=== PATIENT | female | born 1960 | race Caucasian/White ===

== ENCOUNTER 2016-06-09 04:07 | Emergency (ER) | payer BC, OTHER ==
[~2016-06-09] VITALS: Ht 165.1 cm; Wt 67.2 kg
[~2016-06-09 04:07] MED LIST: CIPR500T2 PO; LORA-474 PO; LORT5TAB PO; PRED20 PO
[2016-06-09 04:13] VITALS: BP 158/96; PULSE 89; RESP 16; TEMP 97.8; O2SAT 99
[2016-06-09] MEDS ORDERED: EXCETAB2 PO (04:24)
[2016-06-09] MEDS ORDERED: LORA-392 PO (04:24)
[2016-06-09 04:45] VITALS: BP 160/97; PULSE 81; RESP 16; O2SAT 99
[2016-06-09] MEDS ORDERED: KETOROLAC TROMETHAMINE 30 MG/ML (IVP) VIAL IVP ONE (05:00)
[2016-06-09] MEDS ORDERED: SODIUM CHLOR 0.9% 1000 ML INJ 1,000 ML IV SCH (05:00)
[2016-06-09] MEDS ORDERED: SODIUM CHLORIDE 0.9% FLUSH 10 ML FLUSH IVF PRN (05:00)
[2016-06-09] MEDS ORDERED: ONDANSETRON HCL 4 MG/2 ML VIAL IVP ONE (05:00)
--- NOTE | 2016-06-09 05:07 | PD ---
HPI Chief Complaint: Complaint Time Seen by Provider: 04:51 Travel History International Travel<30 days: No Contact w/Intl Traveler<30days: No Traveled to known affect area: No History of Present Illness HPI 55-year-old female presents to the emergency department by private transportation for evaluation of 2 days for hematuria. Patient reports previous history of kidney stents. Patient states pain is intermittent and colicky in nature but did not start flank pain. No dysuria frequency or urgency. No fever or chills. Patient's had nausea without vomiting. Patient is also had loose stool. Patient denies any other concerns or complaints. Patient rates her discomfort 9/10 intensity over the right hip area. Patient states she is post menopausal. Patient reports that she has not had any vaginal bleeding. Patient denies other concerns or complaints. Patient is unable to identify exacerbating or alleviating factors. PFSH Past Medical History Narrative Medical Kidney stones anxiety hypertension hernia disc D&C appendectomy tonsillectomy tobacco use nursing notes reviewed Anxiety: Yes Cancer: No Diabetes: No Diminished Hearing: No Glaucoma: No Hepatitis: No Hiatal Hernia: No Hypertension: Yes Inguinal Hernia: No Kidney Stones: Yes Musculoskeletal: Yes (NECK PAIN-HERNIATED DISC) Thyroid Disease: No Tetanus Vaccination: Unknown Influenza Vaccination: No ?: Not LMP: POST MENAPAUSAL : 2 Para: 1 Miscarriage: 1 Dilation and Curettage (D&C): Yes Past Surgical History Abdominal Surgery: Yes (d and c appendectomy) Appendectomy: Yes Section: Yes Genitourinary Surgery: Yes (KIDNEY STONE REMOVED) Oral Surgery: Yes (tonsillectomy) Pacemaker: No Tonsillectomy: Yes Social History Alcohol Use: Yes ("WINE NIGHTLY") Tobacco Use: Yes (1PPD) Substance Use: No Allergies-Medications (Allergen,Severity, Reaction): Coded Allergies: No Known Allergies (Verified , 06/09/16) Reported Meds & Prescriptions Reported Meds & Active Scripts Active Reported Ativan (Lorazepam) 0.5 Mg Tab 0.5 Mg PO HS PRN Excedrin Extra Strength (Typqcep-Eqwwliifjipeh-Ajcjryfc) 250-250-65 Mg Tab 1 Tab PO DAILY PRN Review of Systems Except as stated in HPI: all other systems reviewed are Neg General / Constitutional: No: Fever, Chills HENT: No: Congestion Cardiovascular: No: Chest Pain or Discomfort Respiratory: No: Shortness of Breath Gastrointestinal: Positive: Abdominal Pain, No: Nausea, Vomiting Genitourinary: Positive: Hematuria, Flank Pain Musculoskeletal: No: Myalgias, Arthralgias Skin: No Rash Neurologic: No: Weakness Psychiatric: No: Anxiety Endocrine: No: Polyuria Hematologic/Lymphatic: No: Lymph Node Enlargement Physical Exam Narrative GENERAL: Well-developed well-nourished female in no acute distress no respiratory distress SKIN: Warm and dry. HEAD: Normocephalic. EYES: No scleral icterus. No injection or drainage. NECK: Supple, trachea midline. No JVD or lymphadenopathy. CARDIOVASCULAR: Regular rate and rhythm without murmurs, gallops, or rubs. RESPIRATORY: Breath sounds equal bilaterally. No accessory muscle use. GASTROINTESTINAL: Abdomen soft, non-tender, nondistended. Pelvic exam: Normal external exam no redness no induration no lesions; speculum exam no blood or tissue in the vaginal vault; bimanual exam no adnexal mass or tenderness no uterine enlargement. Rectal exam normal sphincter tone brown stool no gross blood MUSCULOSKELETAL: No cyanosis, or edema. BACK: Nontender without obvious deformity. No CVA tenderness. Data Data Last Documented VS Vital Signs Date Time Temp Pulse Resp B/P Pulse Ox O2 Delivery O2 Flow Rate FiO2 06/09/16 04:45 81 16 160/97 99 Room Air 06/09/16 04:13 97.8 Orders Complete Blood Count With Diff (06/09/16 04:51) Basic Metabolic Panel (Bmp) (06/09/16 04:51) Urinalysis - C+S If Indicated (06/09/16 04:51) Ct Abd/Pel W/O Iv Contrast (06/09/16 04:51) Ecg Monitoring (06/09/16 04:51) Iv Access Insert/Monitor (06/09/16 04:51) Ketorolac Inj (Toradol Inj) (06/09/16 05:00) Ondansetron Inj (Zofran Inj) (06/09/16 05:00) Sodium Chloride 0.9% Flush (Ns Flush) (06/09/16 05:00) Sodium Chlor 0.9% 1000 Ml Inj (Ns 1000 M (06/09/16 05:00) Labs Laboratory Tests Test 06/09/16 06/09/16 04:50 05:00 White Blood Count 7.9 TH/MM3 Red Blood Count 4.60 MIL/MM3 Hemoglobin 14.6 GM/DL Hematocrit 43.4 % Mean Corpuscular Volume 94.3 FL Mean Corpuscular Hemoglobin 31.7 PG Mean Corpuscular Hemoglobin 33.7 % Concent Red Cell Distribution Width 12.7 % Platelet Count 296 TH/MM3 Mean Platelet Volume 7.6 FL Neutrophils (%) (Auto) 58.9 % Lymphocytes (%) (Auto) 28.3 % Monocytes (%) (Auto) 10.0 % Eosinophils (%) (Auto) 2.3 % Basophils (%) (Auto) 0.5 % Neutrophils # (Auto) 4.7 TH/MM3 Lymphocytes # (Auto) 2.2 TH/MM3 Monocytes # (Auto) 0.8 TH/MM3 Eosinophils # (Auto) 0.2 TH/MM3 Basophils # (Auto) 0.0 TH/MM3 CBC Comment DIFF FINAL Differential Comment Sodium Level 142 MEQ/L Potassium Level 3.6 MEQ/L Chloride Level 107 MEQ/L Carbon Dioxide Level 26.3 MEQ/L Anion Gap 9 MEQ/L Blood Urea Nitrogen 15 MG/DL Creatinine 0.55 MG/DL Estimat Glomerular Filtration 116 ML/MIN Rate Random Glucose 125 MG/DL Calcium Level 8.7 MG/DL Urine Collection Type CATH Urine Color RED Urine Turbidity CLOUDY Urine pH 5.5 Urine Specific [place] 1.015 Urine Protein 100 mg/dL Urine Glucose (UA) NEG mg/dL Urine Ketones TRACE mg/dL Urine Occult Blood LARGE Urine Nitrite NEG Urine Bilirubin NEG Urine Leukocyte Esterase TRACE Urine RBC INNUM /hpf Urine WBC 3-5 /hpf Urine Squamous Epithelial 0-2 /hpf Cells Urine Bacteria NONE /hpf Microscopic Urinalysis Comment CATH-CULT NOT IND MDM Medical Decision Making Medical Screen Exam Complete: Yes Emergency Medical Condition: Yes Medical Record Reviewed: Yes Interpretation(s) Urinalysis: large blood CBC with differential: Within normal limits Metabolic panel: Values in normal range CBC & BMP Diagram 06/09/16 04:50 Vital Signs Date Time Temp Pulse Resp B/P Pulse Ox O2 Delivery O2 Flow Rate FiO2 06/09/16 04:31 16 06/09/16 04:30 88 16 06/09/16 04:13 97.8 89 16 158/[address] abd/pel: CONCLUSION: 1. 3 mm stone at the right UVJ with mild dilatation of the right collecting system and ureter. 2. Hepatic steatosis. 3. Cystic areas in the left pelvis. The larger cystic area appears more closely associated with the uterus or fallopian tube and could represent an old area of hydrosalpinx or a low-density pedunculated leiomyoma. The 1.5 cm cystic area in the more posterior aspect of the left pelvis is likely related to an ovarian cyst. These findings could be followed up with an ultrasound examination as an outpatient at some point. Librado Jarrett MD on June 09, 2016 at 6:01 Board Certified Radiologist. This report was verified electronically. Differential Diagnosis Hematuria, nephrolithiasis, UTI, metastatic lesion, vaginal bleeding Narrative Course IV access obtained specimens collected and sent for resulting CT imaging study resulted as consistent with 3 mm ureteral stone along with ovarian cysts; patient informed of imaging results and encouraged to follow-up with her [employer] as well as urologist and as needed primary care provider. Patient is stable for outpatient management. Patient provided a prescription for Percocet and Zofran to use as needed and encouraged to strain urine. Patient encouraged to increase fluid hydration. [facility] Point of Care Internal Pos. & Neg. 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
[2016-06-09 05:19] LABS: BLOOD, URINE LARGE (NEG); GLUCOSE,URINE NEG (NEG); KETONE, URINE TRACE mg/dL (NEG); NITRITE,URINE NEG (NEG); PH, URINE 5.5 (5.0-8.5)
[2016-06-09 05:21] LABS: AUTOMATED NEUTROPHIL # 4.7 TH/MM3 (1.8-7.7); BASOPHIL % 0.5 % (0.0-2.0); EOSINOPHIL # 0.2 TH/MM3 (0-0.4); EOSINOPHIL % 2.3 % (0.0-4.0); HEMATOCRIT 43.4 % (35.0-46.0); HEMO FLAGS DIFF FINAL; LYMPH % 28.3 % (9.0-44.0); LYMPHOCYTE # 2.2 TH/MM3 (1.0-4.8); MEAN CELL VOLUME 94.3 FL (80.0-100.0); MEAN CORPUSCULAR HEMOGLOBIN 31.7 PG (27.0-34.0); MEAN CORPUSCULAR HGB CONC 33.7 % (32.0-36.0); NEUT % 58.9 % (16.0-70.0); PLATELET COUNT 296 TH/MM3 (150-450); RED CELL DISTRIBUTION WIDTH 12.7 % (11.6-17.2); WHITE BLOOD COUNT 7.9 TH/MM3 (4.0-11.0)
[2016-06-09 05:21] LABS: METHOD OF COLLECTION CATH; URINE COLOR RED (YELLW/STRAW)
[2016-06-09 05:23] LABS: COMMENT (UR) CATH-CULT NOT IND; CULTURE IF INDICATED CATH CULTURE NOT IND; RBC, URINE INNUM /hpf (0-3); SQUAMOUS EPITHELIAL CELL URINE 0-2 /hpf (0-5)
[2016-06-09 05:26] LABS: POTASSIUM 3.6 MEQ/L (3.5-5.1)
[2016-06-09 05:28] LABS: BICARBONATE 26.3 MEQ/L (21.0-32.0)
[2016-06-09 05:50] VITALS: BP 149/81; PULSE 88; RESP 16; O2SAT 99
--- NOTE | 2016-06-09 06:08 | RADHPO ---
EXAM DATE/TIME: 06/09/2016 05:30 [facility] COMPARISON: No previous studies available for comparison. INDICATIONS : Right lower back and mid abdomen pain with hematuria. ORAL CONTRAST: No oral contrast ingested. RADIATION DOSE: 12.02 CTDIvol (mGy) MEDICAL HISTORY : Hypertension. Renal calculi. SURGICAL HISTORY : Appendectomy. section. ENCOUNTER: Initial ACUITY: 2 days PAIN SCALE: 8/10 LOCATION: Right lower quadrant back TECHNIQUE: Volumetric scanning of the abdomen and pelvis was performed. Using automated exposure control and ad justment of the mA and/or kV according to patient size, radiation dose was kept as low as reasonably achievable to obtain optimal diagnostic quality images. FINDINGS: LOWER LUNGS: The visualized lower lungs are clear. LIVER: There is diffuse decreased attenuation consistent with fatty infiltration. No focal hepatic mass is s een. There is no dilation of the biliary tree. No calcified gallstones. SPLEEN: Normal size without lesion. PANCREAS: Within normal limits. KIDNEYS: There is a 3 mm stone at the distal right UVJ. There is mild dilatation of the right collecting syste m and right ureter. The left kidney is normal. ADRENAL GLANDS: Within normal limits. VASCULAR: There is no aortic aneurysm. BOWEL/MESENTERY: The stomach, small bowel, and colon demonstrate no acute abnormality. There is no free intraperitone al air or fluid. ABDOMINAL WALL: Within normal limits. RETROPERITONEUM: There is no lymphadenopathy. BLADDER: No wall thickening or mass. REPRODUCTIVE: There is a 3.4 cm low-density mass seen in the anterior left pelvis adjacent to the uterine fundus. T here is also a 1.5 cm cyst at the left adnexal region. INGUINAL: There is no lymphadenopathy or hernia. MUSCULOSKELETAL: Within normal limits for patient age. CONCLUSION: 1. 3 mm stone at the right UVJ with mild dilatation of the right collecting system and ureter. 2. Hepatic steatosis. 3. Cystic areas in the left pelvis. The larger cystic area appears more closely associated with the u terus or fallopian tube and could represent an old area of hydrosalpinx or a low-density pedunculated leiomyoma. The 1.5 cm cystic area in the more posterior aspect of the left pelvis is likely related to an ovarian cyst. These findings could be followed up with an ultrasound examination as an outpatie nt at some point. Librado Jarrett MD on June 09, 2016 at 6:01 Board Certified Radiologist. This report was verified electronically.
[2016-06-09 06:17] VITALS: RESP 16
[2016-06-09] MEDS ORDERED: PERC5TAB12 PO (06:20)
[2016-06-09] MEDS ORDERED: ZOFR4TAB3 SL (06:20)
== END 2016-06-09 06:36 | disposition home or self-care (01) ==
LOC: PHED 04:07
DX: N20.1 Calculus of ureter (principal); N83.209 Unspecified ovarian cyst, unspecified side
CPT/HCPCS: 74176; 80048; 81001; 85025; 96374; 96375; 99284; J1885; J2405; J7030